=== PATIENT | male | born 1975 | race Caucasian/White ===

== ENCOUNTER 2019-03-10 07:47 | Emergency (ER) | payer OTHER, SELFPAY ==
[2019-03-10 07:51] VITALS: BP 161/85; PULSE 88; RESP 16; TEMP 36.7; O2SAT 97
--- NOTE | 2019-03-10 08:21 | W.ED.GENAD ---
Discharge Plan Disposition Patient Disposition: HOME Condition: Stable Discharge Details Chief Complaint: Cellulitis Clinical Impression: Abscess, perianal Primary Care Provider: Cayden Waggoner ED Provider: Yimi Miller Home Meds and New Rx's Prescriptions: Continued aspirin 81 MG tablet,delayed release (DR/EC) 81 mg PO DAILY RF: 0 levalbuterol tartrate [Xopenex HFA] 200 PUFF HFA aerosol inhaler 15 gm Inhalation Q4H PRN PRNQty: 1 RF: 0 atorvastatin 40 mg tablet 40 mg PO DAILY Qty: 90 RF: 3 ibuprofen 800 mg tablet 800 mg PO TID Qty: 90 RF: 3 cyclobenzaprine 10 mg tablet 10 mg PO HS PRN (Reason: muscle spasm) Qty: 30 RF: 4 No Action amlodipine 5 mg tablet 5 mg PO QAM Qty: 90 RF: 4 Discharge Instructions Instructions: Abscess (ED) Additional Instructions: Return immediately to the emergency department for any new or worsening symptoms, fever chills, or any further concerns. Otherwise gently wipe after bowel movements to keep packing in place and follow-up with surgical group on Tuesday for reassessment and packing removal. Please take antibiotic as prescribed. Referrals: [facility] [Provider Group] - 03/12/19 (Please call the office for arrangement of follow-up appointment and packing removal) Discharge Data Discharge Date/Time-TO BE ENTERED AT DEPARTURE: 03/10/19 11:39 Medical Decision Making Patient presenting to the emergency department for chief complaint of rectal abscess. Patient reports that about a week ago he noted some discomfort near his rectum. Over the past week this is grown in size and increasing discomfort were today it began bothering him so much that it hurts to sit down. Patient has medical history of back pain, hypertension, high cholesterol. Patient denies any fever chills, change in bowel movement, change in urinary habits. Physical exam shows very minimal superficial erythema at the 6 o'clock position from the rectum and mild induration. With bedside ultrasound there shows to be a significant abscess in this area with fluid collection. Given significant fluid collection I do feel that CT imaging is warranted. Pending results of labs and imaging patient given ketorolac for discomfort. Labs are reviewed and are unremarkable and show no leukocytosis and are otherwise nondiagnostic. CT imaging reviewed and radiologist interpretation shows a perianal abscess with radiologist measuring at 2.4 cm x 1.4 cm x 1.7 cm. Discussed risk versus benefit of drainage with patient and verbal consent was obtained for I&D drainage. Please see procedure note for drainage. Iodoform packing was used. Patient tolerated procedure well. Patient started on Cipro Flagyl given location but due to I&D patient just given 3-day supply of antibiotics as otherwise labs are unremarkable patient is stable nontoxic no systemic symptoms. Return precautions discussed otherwise patient placed upon general surgery follow-up list for preferred reassessment on Tuesday and possible packing removal. After discussion of diagnosis and plan of care patient has no further needs, questions, or concerns and states clear understanding to return to the emergency department for any worsening symptoms. HPI General Mode of arrival: ambulatory. Date/Time Provider Initiated Documentation: 03/10/19 08:00. Limitations to Documentation: no limitations. Information obtained by: patient, family and RN notes reviewed. History of Present Illness 43 year old M presents to the emergency department with the chief complaint of rectal swelling/abscess, described as moderate, with intensity rated at 4. Quality is described as aching, and is localized to the pelvis. Patient started experiencing this week(s) (1) and it has been constant. No exacerbating factors reported . Patient notes no other symptoms.. Patient did receive the following treatments prior to arrival, none Related Data Home Medications Medication Instructions Recorded Confirmed aspirin 81 mg PO DAILY tab-cap 08/24/13 03/10/19 levalbuterol tartrate [Xopenex HFA] 15 gm INHALATION Q4H PRN PRN #1 inh 12/09/17 03/10/19 atorvastatin 40 mg tablet 40 mg PO DAILY #90 tab-cap 12/12/18 03/10/19 ibuprofen 800 mg tablet 800 mg PO TID #90 tab-cap 12/12/18 03/10/19 cyclobenzaprine 10 mg tablet 10 mg PO HS PRN #30 tab-cap 12/29/18 03/10/19 amlodipine 5 mg tablet 5 mg PO QAM #90 tab 03/12/19 Previous Rx's Medication Instructions Recorded atorvastatin 40 mg tablet 40 mg PO DAILY #90 tab-cap 12/12/18 ibuprofen 800 mg tablet 800 mg PO TID #90 tab-cap 12/12/18 cyclobenzaprine 10 mg tablet 10 mg PO HS PRN #30 tab-cap 12/29/18 amlodipine 5 mg tablet 5 mg PO QAM #90 tab 03/12/19 Allergies Allergy/AdvReac Type Severity Reaction Status Date / Time green pepper Allergy Intermediate tingling Verified 03/12/19 09:56 lips apple Allergy Unknown Verified 03/12/19 09:56 General Stated Complaint: Cellulitis LIZETH: 3 Review of Systems Constitutional Denies chills and Denies fever(s) Gastrointestinal Reports as per HPI, Denies abdominal pain, Denies melena, Denies change in bowel habits, Denies constipation, Denies diarrhea, Denies nausea and Denies vomiting Genitourinary Denies difficulty urinating Integumentary/Breasts Reports skin swelling PFSH Family History Mother Fibromyalgia Father Diabetes Essential hypertension Hyperlipidemia Stroke Grandfather Stroke Grandfather Myocardial infarction Stroke Grandmother Personal history of malignant neoplasm Grandmother No problems noted. Sister Aneurysm Social History Smoking/Tobacco Use Status: Former Tobacco Use Alcohol Intake: current Alcohol Intake frequency: holidays/special occasions only Alcohol type: beer Drug use: Daily Substance use type: marijuana Do you feel safe at home: Yes Do you feel safe in your relationship?: Yes Exam Const General: cooperative, no acute distress and not ill appearing Orientation: alert, awake and oriented x3 Resp Effort & Inspection: normal respiratory effort, able to speak in complete sentences and no respiratory distress GI Rectal Exam: visual inspection abnormal other (Fluctuance is swelling at 6 o'clock) Course Vital Signs Temperature 36.7 C 03/10/19 07:51 Pulse 88 03/10/19 07:51 Respiratory Rate 16 03/10/19 07:51 Blood Pressure 161/85 H 03/10/19 07:51 Pulse Oximetry 97 03/10/19 07:51 Temperature 36.7 C 03/10/19 07:51 Temperature Source Skin 03/10/19 07:51 Pulse 88 03/10/19 07:51 Respiratory Rate 16 03/10/19 07:51 Blood Pressure 161/85 H 03/10/19 07:51 Blood Pressure Position Sitting 03/10/19 07:51 Pulse Oximetry 97 03/10/19 07:51 Oxygen Delivery Method Room Air 03/10/19 07:51 Oxygen Flow Rate 0 03/10/19 07:51 Pain Level 4 03/10/19 07:51 Procedures Abscess I/D Site: Denisse-rectal Sedation/analgesia: None Local Anesthetic: Lidocaine 1% Amount of anesthesia used (mL): 10 Technique: Incised with #11 Blade Amount of fluid expressed (mL): 5 Irrigation: Yes Packing used?: Iodoform Complications: Bleeding
--- NOTE | 2019-03-10 08:26 | ED.GENADUL_ITS ---
Discharge Plan Disposition Patient Disposition: HOME Condition: Stable Discharge Details Chief Complaint: Cellulitis Clinical Impression: Abscess, perianal Primary Care Provider: Cayden Waggoner ED Provider: Yimi Miller Home Meds and New Rx's Prescriptions: Continued aspirin 81 MG tablet,delayed release (DR/EC) 81 mg PO DAILY RF: 0 levalbuterol tartrate [Xopenex HFA] 200 PUFF HFA aerosol inhaler 15 gm Inhalation Q4H PRN PRNQty: 1 RF: 0 atorvastatin 40 mg tablet 40 mg PO DAILY Qty: 90 RF: 3 ibuprofen 800 mg tablet 800 mg PO TID Qty: 90 RF: 3 cyclobenzaprine 10 mg tablet 10 mg PO HS PRN (Reason: muscle spasm) Qty: 30 RF: 4 No Action amlodipine 5 mg tablet 5 mg PO QAM Qty: 90 RF: 4 Discharge Instructions Instructions: Abscess (ED) Additional Instructions: Return immediately to the emergency department for any new or worsening symptoms, fever chills, or any further concerns. Otherwise gently wipe after bowel movements to keep packing in place and follow-up with surgical group on Tuesday for reassessment and packing removal. Please take antibiotic as prescribed. Referrals: [facility] [Provider Group] - 03/12/19 (Please call the office for arrangement of follow-up appointment and packing removal) Discharge Data Discharge Date/Time-TO BE ENTERED AT DEPARTURE: 03/10/19 11:39 Medical Decision Making Patient presenting to the emergency department for chief complaint of rectal abscess. Patient reports that about a week ago he noted some discomfort near his rectum. Over the past week this is grown in size and increasing discomfort were today it began bothering him so much that it hurts to sit down. Patient has medical history of back pain, hypertension, high cholesterol. Patient denies any fever chills, change in bowel movement, change in urinary habits. Physical exam shows very minimal superficial erythema at the 6 o'clock position from the rectum and mild induration. With bedside ultrasound there shows to be a significant abscess in this area with fluid collection. Given significant fluid collection I do feel that CT imaging is warranted. Pending results of labs and imaging patient given ketorolac for discomfort. Labs are reviewed and are unremarkable and show no leukocytosis and are otherwise nondiagnostic. CT imaging reviewed and radiologist interpretation shows a perianal abscess with radiologist measuring at 2.4 cm x 1.4 cm x 1.7 cm. Discussed risk versus benefit of drainage with patient and verbal consent was obtained for I&D drainage. Please see procedure note for drainage. Iodoform packing was used. Patient tolerated procedure well. Patient started on Cipro Flagyl given location but due to I&D patient just given 3-day supply of antibiotics as otherwise labs are unremarkable patient is stable nontoxic no systemic symptoms. Return precautions discussed otherwise patient placed upon general surgery follow-up list for preferred reassessment on Tuesday and possible packing removal. After discussion of diagnosis and plan of care patient has no further needs, questions, or concerns and states clear understanding to return to the emergency department for any worsening symptoms. [facility] General Mode of arrival: ambulatory . Date/Time Provider Initiated Documentation: 03/10/19 08:00 . Limitations to Documentation: no limitations . Information obtained by: patient, family and RN notes reviewed . History of Present Illness 43 year old M presents to the emergency department with the [facility] complaint of rectal swelling/abscess, described as moderate, with intensity rated at 4. Quality is described as aching, and is localized to the pelvis. Patient started experiencing this week(s) (1) and it has been constant. No exacerbating factors reported . Patient notes no other symptoms.. Patient did receive the following treatments prior to arrival, none Related Data Home Medications Medication Instructions Recorded Confirmed aspirin 81 mg PO DAILY tab-cap 08/24/13 03/10/19 levalbuterol tartrate [Xopenex HFA] 15 gm INHALATION Q4H PRN PRN #1 inh 12/09/17 03/10/19 atorvastatin 40 mg tablet 40 mg PO DAILY #90 tab-cap 12/12/18 03/10/19 ibuprofen 800 mg tablet 800 mg PO TID #90 tab-cap 12/12/18 03/10/19 cyclobenzaprine 10 mg tablet 10 mg PO HS PRN #30 tab-cap 12/29/18 03/10/19 amlodipine 5 mg tablet 5 mg PO QAM #90 tab 03/12/19 Previous Rx's Medication Instructions Recorded atorvastatin 40 mg tablet 40 mg PO DAILY #90 tab-cap 12/12/18 ibuprofen 800 mg tablet 800 mg PO TID #90 tab-cap 12/12/18 cyclobenzaprine 10 mg tablet 10 mg PO HS PRN #30 tab-cap 12/29/18 amlodipine 5 mg tablet 5 mg PO QAM #90 tab 03/12/19 Allergies Allergy/AdvReac Type Severity Reaction Status Date / Time green pepper Allergy Intermediate tingling Verified 03/12/19 09:56 lips apple Allergy Unknown Verified 03/12/19 09:56 General Stated Complaint: Cellulitis LIZETH: 3 Review of Systems Constitutional Denies chills and Denies fever(s) Gastrointestinal Reports as per HPI, Denies abdominal pain, Denies melena, Denies change in bowel habits, Denies constipation, Denies diarrhea, Denies nausea and Denies vomiting Genitourinary Denies difficulty urinating Integumentary/Breasts Reports skin swelling PFSH Family History Mother Fibromyalgia Father Diabetes Essential hypertension Hyperlipidemia Stroke Grandfather Stroke Grandfather Myocardial infarction Stroke Grandmother Personal history of malignant neoplasm Grandmother No problems noted. Sister Aneurysm Social History Smoking/Tobacco Use Status: Former Tobacco Use Alcohol Intake: current Alcohol Intake frequency: holidays/special occasions only Alcohol type: beer Drug use: Daily Substance use type: marijuana Do you feel safe at home: Yes Do you feel safe in your relationship?: Yes Exam Const General: cooperative, no acute distress and not ill appearing Orientation: alert, awake and oriented x3 Resp Effort & Inspection: normal respiratory effort, able to speak in complete sentences and no respiratory distress GI Rectal Exam: visual inspection abnormal other (Fluctuance is swelling at 6 o'clock) Course Vital Signs Temperature 36.7 C 03/10/19 07:51 Pulse 88 03/10/19 07:51 Respiratory Rate 16 03/10/19 07:51 Blood Pressure 161/85 H 03/10/19 07:51 Pulse Oximetry 97 03/10/19 07:51 Temperature 36.7 C 03/10/19 07:51 Temperature Source Skin 03/10/19 07:51 Pulse 88 03/10/19 07:51 Respiratory Rate 16 03/10/19 07:51 Blood Pressure 161/85 H 03/10/19 07:51 Blood Pressure Position Sitting 03/10/19 07:51 Pulse Oximetry 97 03/10/19 07:51 Oxygen Delivery Method Room Air 03/10/19 07:51 Oxygen Flow Rate 0 03/10/19 07:51 Pain Level 4 03/10/19 07:51 Procedures Abscess I/D Site: Denisse-rectal Sedation/analgesia: None Local Anesthetic: Lidocaine 1% Amount of anesthesia used (mL): 10 Technique: Incised with #11 Blade Amount of fluid expressed (mL): 5 Irrigation: Yes Packing used?: Iodoform Complications: Bleeding
[2019-03-10 08:38] LABS: Abs Immature Grans 0.01 k/cumm (0.0-0.09); Absolute Basophil Count 0.01 k/cumm (0.0-0.2); Absolute Eosinophil Count 0.11 k/cumm (0.0-0.7); Absolute Lymphocyte Count 2.15 k/cumm (1.2-3.4); Absolute Monocyte Count 0.71 k/cumm (0.11-0.7); Absolute Neutrophil Count 4.98 k/cumm (1.2-6.7); Basophils % 0.1; Eosinophils % 1.4; HGB 13.7 g/dL (13.5-17.5); Immature Grans % 0.1; Mean Corp. HGB Concentration 33.4 g/dL (32.0-36.0); Mean Corpuscular Volume 89.7 fL (80-95); Mean Platelet Volume 10.4 fL (8.0-11.0); Monocytes % 8.9; Neutrophils % 62.5; Platelet Count 260 x1000/uL (130-400); RBC 4.57 m/cumm (4.50-6.00); RBC Distribution Width 13.3 % (11.8-14.1); White Blood Cell Count 7.97 k/cumm (4.4-10.8)
[2019-03-10] MEDS: Normal Saline Flush 10 ML SYR IVP (08:41)
[2019-03-10] MEDS: Ketorolac 30 MG/ML VIAL IVP (08:41)
[2019-03-10 08:51] LABS: ALT 41 U/L (12-78); AST 25 U/L (15-37); Albumin 3.9 g/dL (3.4-5.0); Alkaline Phosphatase 56 U/L (46-116); Anion Gap 9.8 mmol/L (3-11); BUN 11 mg/dL (7-18); Bilirubin, Total 0.4 mg/dL (0.2-1.0); CO2 26.2 mmol/L (21.0-32.0); CREATININE 0.79 mg/dL (0.70-1.30); Calcium 8.9 mg/dL (8.5-10.1); Chloride 103 mmol/L (98-107); Glucose 112 mg/dL (70-100); Potassium 3.9 mmol/L (3.5-5.1); Sodium 139 mmol/L (136-145); Total Protein 7.6 g/dL (6.4-8.2)
[2019-03-10] MEDS: Omnipaque 350 MG/ML 100 ML BTL IJ (09:11)
--- NOTE | 2019-03-10 09:12 | DI.CT_ITS ---
SYMPTOM/DIAGNOSIS: RECTAL ABSCESS PELVIC CT: CT scan of the pelvis was performed following the uneventful administration of intravenous contrast material. Comparison is made with 10/23/07. There is diverticulosis seen in the sigmoid colon but no evidence of acute diverticulitis. There is a normal appendix present. The remainder of the visualized bowel is unremarkable. The urinary bladder is intact. The reproductive organs are unremarkable. No significant pelvic adenopathy, ascites or pneumoperitoneum is seen. The distal aorta and iliac arteries are grossly unremarkable. The bones are intact. There is a 2.4 by 1.4 by 1.7 cm. perianal abscess present. IMPRESSION: 2.4 by 1.4 by 1.7 cm. perianal abscess.
--- NOTE | 2019-03-10 09:36 | DI.VRAD_ITS ---
EXAM: CT Pelvis With Contrast EXAM DATE/TIME: 03/10/2019 8:21 AM CLINICAL HISTORY: 43 years old, male; Signs and symptoms; Patient HX: Rectal abscess x1 week. TECHNIQUE: Imaging protocol: Axial computed tomography images of the pelvis with intravenous contrast. Coronal and sagittal reformatted images were created and reviewed. Contrast material: OMNIPAQUE 350; Contrast volume: 100 ml; Contrast route: IV; COMPARISON: No relevant prior studies available. FINDINGS: Stomach and bowel: No bowel obstruction or diverticulitis. Appendix: The appendix has a normal caliber with no wall thickening. No periappendiceal stranding. Bladder: No urinary bladder calculus or wall thickening. Reproductive: Normal as visualized. Intraperitoneal space: No ascites or pneumoperitoneum. Vasculature: No aneurysm. Lymph nodes: No pathologically enlarged lymph nodes. Bones/joints: No acute osseous abnormality. Soft tissues: There is a 2.4 cm x 1.4 cm x 1.7 cm perianal abscess. IMPRESSION: Perianal abscess. Dictated and Authenticated by: Edilson Hunter MD. Ordering:ALYSHA Geller MD
[2019-03-10 09:46] VITALS: BP 145/64; PULSE 72; RESP 18; TEMP 37.2; O2SAT 97
[2019-03-10] MEDS: Lidocaine/Prilocaine Cream 5 GM TUBE TP (09:50)
[2019-03-10] MEDS: metroNIDAZOLE 500 MG TAB PO (11:33)
[2019-03-10] MEDS: Ciprofloxacin 500 MG TAB PO (11:33)
--- NOTE | 2019-03-11 07:27 | NUR.NOTE ---
referral sent to general surgery for ED f/u.Nursing Note:
== END 2019-03-10 11:39 | disposition home or self-care (01) ==
PROVIDERS: Emergency Provider Nurse Practitioner Family; PCP Family Medicine
DX: K61.0 Anal abscess (principal)
CPT/HCPCS: 10061; 36415; 80053; 87077; 96374; 99285; 72193; 85025; 87070; 87186; 87205; 99284; J1885; J3490

== ENCOUNTER 2019-07-23 09:35 | Outpatient (CLI) | payer OTHER, SELFPAY ==
--- NOTE | 2019-07-23 10:00 | DI.RAD_ITS ---
EXAM: XR KNEE LT 3V AP,LAT,RICKY INDICATION: left knee pain M25.562. COMPARISON: LEFT KNEE LIMITED 1 OR 2 VIEWS from 06/14/2012 TECHNIQUE: 2D digital imaging was performed. FINDINGS: The bony structures are normally mineralized. The joint spaces appear intact. Spur formation is not ed at the insertion of the quadriceps tendon on the superior border of the patella. There is no evide nce of a joint effusion.
== END 2019-07-23 09:55 ==
PROVIDERS: PCP Family Medicine; Visit Provider Family Medicine
DX: M25.562 Pain in left knee (principal)
CPT/HCPCS: 73562

== ENCOUNTER 2019-07-27 08:41 | Outpatient (CLI) | payer OTHER, SELFPAY ==
--- NOTE | 2019-07-27 08:26 | DI.RAD_ITS ---
EXAM: XR KNEE LT 1V CLINICAL HISTORY: PAIN TECHNIQUE: COMPARISON: XR KNEE LT 3V AP,LAT,RICKY from 07/23/2019 FINDINGS: Single Merchant view was obtained. The patella is unremarkable in appearance and appears normally si tuated with respect to the trochlea. IMPRESSION:
== END 2019-07-27 09:01 ==
PROVIDERS: PCP Family Medicine; Visit Provider Student in an Organized Health Care Education/Training Program
DX: M25.562 Pain in left knee (principal)
CPT/HCPCS: 73560

== ENCOUNTER 2020-03-26 02:37 | Outpatient (CLI) | payer OTHER, SELFPAY ==
[2020-03-26 13:26] LABS: Anion Gap 10.7 mmol/L (3-11); BUN 16 mg/dL (7-18); CO2 26.3 mmol/L (21.0-32.0); CREATININE 0.82 mg/dL (0.70-1.30); Calcium 9.5 mg/dL (8.5-10.1); Calculated LDL 85 mg/dL (<100); Chloride 104 mmol/L (98-107); Cholesterol 135 mg/dL (<200); Glucose 114 mg/dL (74-106); HDL Cholesterol 37 mg/dL (40-60); Potassium 4.6 mmol/L (3.5-5.1); Sodium 141 mmol/L (136-145); Triglyceride 68 mg/dL (<150)
== END 2020-03-26 02:57 ==
PROVIDERS: PCP Family Medicine; Visit Provider Family Medicine
DX: Z00.00 Encounter for general adult medical examination without abnormal findings (principal); I10 Essential (primary) hypertension
CPT/HCPCS: 36415; 80048; 80061

== ENCOUNTER 2020-07-29 08:20 | Outpatient (CLI) | payer OTHER, SELFPAY ==
--- NOTE | 2020-07-29 08:30 | DI.RAD_ITS ---
EXAM: XR HAND LT COMPLETE CLINICAL HISTORY: left hand injury TECHNIQUE: COMPARISON: CR LEFT HAND COMPLETE from 07/23/2010 FINDINGS: Three views were obtained. There are degenerative changes at the greater multangular 1st metacarpal joint. There is no evidence of acute fracture or dislocation. IMPRESSION: RADIATION DOSE DELIVERED: Total DLP
== END 2020-07-29 08:40 ==
PROVIDERS: PCP Nurse Practitioner; Referring Provider Nurse Practitioner; Visit Provider Physician Assistant Surgical
DX: M18.12 Unilateral primary osteoarthritis of first carpometacarpal joint, left hand (principal)
CPT/HCPCS: 73130

== ENCOUNTER 2021-04-30 04:10 | Outpatient (CLI) | payer OTHER, SELFPAY ==
[2021-04-30 09:05] LABS: CREATININE 0.8 mg/dL (0.70-1.30); Potassium 4.2 mmol/L (3.5-5.1)
[2021-04-30 09:18] LABS: Calculated LDL 94 mg/dL (<100); Cholesterol 149 mg/dL (<200); HDL Cholesterol 44 mg/dL (40-60); Triglyceride 57 mg/dL (<150)
[2021-04-30 18:20] LABS: PSA, Screening 0.3 ng/mL (0.0-2.5)
== END 2021-04-30 04:11 | disposition home or self-care (01) ==
LOC: LBO 04:10
PROVIDERS: PCP Nurse Practitioner; Visit Provider Nurse Practitioner
DX: E78.5 Hyperlipidemia, unspecified (principal); I10 Essential (primary) hypertension; R73.01 Impaired fasting glucose; Z12.5 Encounter for screening for malignant neoplasm of prostate
CPT/HCPCS: 36415; 80061; 84153; 82565; 83036; 84132

== ENCOUNTER 2021-05-26 08:08 | Emergency (ER) | payer OTHER, SELFPAY ==
[2021-05-26 08:12] VITALS: BP 140/88; PULSE 67; RESP 16; TEMP 36.4; O2SAT 98
--- NOTE | 2021-05-26 08:15 | DI.US_ITS ---
Exam(s) US LOWER EXTREMITY VENOUS LT EXAM: US LOWER EXTREMITY VENOUS LT CLINICAL HISTORY: L medial thigh swelling. TECHNIQUE: Lower extremity venous ultrasound performed using grayscale, color-flow, and spectral Do ppler analysis. COMPARISON: No exams were available for comparison FINDINGS: The common femoral, femoral and popliteal veins demonstrate normal compressibility, augmentation, and color Doppler. The posterior tibial veins are patent. No saphenous vein thrombosis or other superfi cial venous thrombosis is seen. No hematoma or Alba's cyst is seen. IMPRESSION: Negative left lower extremity ultrasound. No evidence of DVT. DATA REPOSITORY:
[2021-05-26 08:16] VITALS: RESP 16
--- NOTE | 2021-05-26 08:28 | W.ED.GENAD ---
Discharge Plan Disposition Patient Disposition: HOME Condition: Improving Discharge Details Clinical Impression: Muscle cramps Primary Care Provider: Joanne Berman ED Provider: Zachary Gutiérrez Home Meds and New Rx's Prescriptions: Continued aspirin 81 MG tablet,delayed release (DR/EC) 81 mg PO DAILY RF: 0 levalbuterol tartrate [Xopenex HFA] 45 mcg/actuation HFA aerosol inhaler 2 puff Inhalation Q4H PRN PRN (Reason: shortness of breath or wheezing) Qty: 15 RF: 4 atorvastatin 40 mg tablet 40 mg PO DAILY Qty: 90 RF: 3 cyclobenzaprine 10 mg tablet 10 mg PO HS PRN (Reason: muscle spasm) Qty: 30 RF: 4 ibuprofen 800 mg tablet 800 mg PO TID PRN (Reason: fever or pain) Qty: 90 RF: 3 amlodipine 5 mg tablet 5 mg PO QHS RF: 0 Discharge Instructions Instructions: Leg Cramps (ED) Additional Instructions: Limit caffeine use to 2 cups in the morning. Continue to liberally hydrate throughout the day while working. Add potassium-containing fruit such as bananas or strawberries to your daily diet. Your laboratories today were reassuring. Return for any acute concerns. Medical Decision Making 46-year-old male presents with history of heavy exertion, sweating dehydration followed by left medial thigh cramp which he managed to ease with vigorous massage. He had some diarrhea and generalized weakness that evening and subsequently felt improved. Patient states she then noted a patch of erythema on his left medial thigh in the area of the cramp that lasted approximate 2 days, now improving. No fever. No chest pain or shortness of breath and he has otherwise been well. Must rule out DVT, would consider superficial thrombophlebitis, but likely patient had localized irritation following his dehydration and muscle cramp. Laboratories: CBC and basic unremarkable Ultrasound: No evidence of DVT. Patient stable and appropriate outpatient management. His presentation is consistent with a muscular cramp. Discussed home management. HPI General Mode of arrival: ambulatory. Date/Time Provider Initiated Documentation: 05/26/21 08:16. Limitations to Documentation: no limitations. Information obtained by: patient and family. History of Present Illness 46 year old M presents to the emergency department with the chief complaint of Left medial thigh erythema, recent cramp, described as mild and moderate, and is localized to the left and lower extremity. Patient reports no radiation. Patient started experiencing this day(s) and it has been other (Improving). No relieving factors improve symptom(s), No exacerbating factors reported . Patient notes other (Had loose stool and muscle cramps with dehydration antecedent). Patient did receive the following treatments prior to arrival, none Related Data Home Medications Medication Instructions Recorded Confirmed aspirin 81 mg PO DAILY tab-cap 08/24/13 05/26/21 levalbuterol tartrate 45 2 puff INHALATION Q4H PRN PRN #15 10/01/20 05/26/21 mcg/actuation aerosol inhaler gm atorvastatin 40 mg tablet 40 mg PO DAILY #90 tab-cap 01/08/21 05/26/21 cyclobenzaprine 10 mg tablet 10 mg PO HS PRN #30 tab-cap 02/26/21 05/26/21 ibuprofen 800 mg tablet 800 mg PO TID PRN #90 tab-cap 05/01/21 05/26/21 amlodipine 5 mg PO QHS 05/26/21 05/26/21 Previous Rx's Medication Instructions Recorded levalbuterol tartrate 45 2 puff INHALATION Q4H PRN PRN #15 10/01/20 mcg/actuation aerosol inhaler gm atorvastatin 40 mg tablet 40 mg PO DAILY #90 tab-cap 01/08/21 cyclobenzaprine 10 mg tablet 10 mg PO HS PRN #30 tab-cap 02/26/21 ibuprofen 800 mg tablet 800 mg PO TID PRN #90 tab-cap 05/01/21 Allergies Allergy/AdvReac Type Severity Reaction Status Date / Time green pepper Allergy Intermediate tingling Verified 04/02/21 08:05 lips apple Allergy Unknown Verified 04/02/21 08:05 General Stated Complaint: GenMedical LIZETH: 4 Review of Systems Narrative: 6 systems reviewed and otherwise negative FOR[facility]LY [facility], [facility] Medical History Anisocoria Anxiety Depression MCL sprain of left knee (07/17/19) Perianal abscess Shoulder pain Surgical History Previous back surgery ? In [place] Family History Mother Fibromyalgia Father Diabetes Essential hypertension Hyperlipidemia Stroke Maternal Grandfather , 83 Stroke Alcohol abuse Paternal Grandfather , 74 Myocardial infarction Stroke Maternal Grandmother , 49 Lung cancer Paternal Grandmother No problems noted. Sister Aneurysm Traumatic brain injury Social History Smoking/Tobacco Use Status: Former Tobacco Use Tobacco: How many years used: 10 Second Hand Exposure: Yes Smoking risk assessment performed?: Yes Alcohol Intake: current Alcohol Intake frequency: 0-2 drinks per day Alcohol type: beer and wine Drug use: Daily Substance use type: marijuana Caregiver/Support person: No Household members: spouse and children Housing: house Communication Needs: None Do you need help understanding health information?: Never Pets and animals: Yes Pets and animals: cat(s) and dog(s) Sexually active: Yes Do you think of yourself as: straight/heterosexual Current gender identity: male What is your relationship status?: How often do you talk on the phone with friends or family?: decline to answer How often do you get together with friends or relatives?: decline to answer How often do you attend confucianism or quaker services?: decline to answer Do you belong to any clubs or organized social groups?: decline to answer Panel score (0-1 are the most socially isolated patients): 1 What type of physical activity do you participate in: decline to answer Duration: decline to answer Frequency: decline to answer Maria Victoria/Restorationist: No preference Special maria victoria needs: No Seatbelt use: always Drive intox or ride w/intox taxi driver: No Do you feel safe at home: Yes Do you feel safe in your relationship?: Yes Exam Narrative Exam Narrative: GEN: awake, alert, oriented 3. Pleasant, well groomed, interactive. HEAD: Normocephalic, atraumatic ENT: Mucous membranes moist, oropharynx unremarkable, External ear exam unremarkable EYES: PERRL, EOMI NECK: Full ROM, no MANISH, no menigismus CHEST/RESP: Nontender, clear to auscultation bilateral, no wheeze/rhonchi/rales CARDIOVASCULAR: RRR, no murmur, rub jaime. 2+ Rad pulse bilateral ABDOMEN: Soft, nontender, no mass. +Bowel sounds EXT: Full ROM, no edema, left medial thigh with discrete area of ecchymosis, no persistent erythema as reported Neuro: Grossly normal neurologic exam, conversant, interactive. Psych: Speech fluent, thoughts congruent, affect normal Course Vital Signs Vital signs: Vital Signs Temperature 36.4 C L 05/26/21 08:12 Pulse 67 05/26/21 08:12 Respiratory Rate 16 05/26/21 08:12 Blood Pressure 140/88 05/26/21 08:12 Pulse Oximetry 98 05/26/21 08:12 Temperature 36.4 C L 05/26/21 08:12 Temperature Source Skin 05/26/21 08:12 Pulse 67 05/26/21 08:12 Respiratory Rate 16 05/26/21 08:16 Respiratory Effort 05/26/21 08:16 Respiratory Depth Normal 05/26/21 08:16 Respiratory Pattern Normal 05/26/21 08:16 Blood Pressure 140/88 05/26/21 08:12 Pulse Oximetry 98 05/26/21 08:12 Oxygen Delivery Method Room Air 05/26/21 08:12 Oxygen Flow Rate 0 05/26/21 08:12 Pain Level 2 05/26/21 08:12
[2021-05-26 08:40] LABS: HCT 43.4 % (40.0-50.0); HGB 13.9 g/dL (13.5-17.5); MCH 29.1 pg (27.0-33.0); MCV 90.8 fL (80-95); MPV 9.8 fL (8.0-11.0); Platelet Count 236 10^3/uL (130-400); RBC 4.78 10^6/uL (4.36-5.78); RDW 13.1 % (11.8-14.1); RDW-SD 44.1 fL; WBC 4.66 10^3/uL (4.4-10.8)
[2021-05-26 08:52] LABS: Anion Gap 8.3 mmol/L (3-11); BUN 12 mg/dL (7-18); CO2 29.7 mmol/L (21.0-32.0); CREATININE 0.8 mg/dL (0.70-1.30); Calcium 9.1 mg/dL (8.5-10.1); Chloride 105 mmol/L (98-107); Glucose 126 mg/dL (74-106); Potassium 3.9 mmol/L (3.5-5.1); Sodium 143 mmol/L (136-145)
[2021-05-26 09:56] VITALS: RESP 16
== END 2021-05-26 10:02 | disposition home or self-care (01) ==
PROVIDERS: Emergency Provider Emergency Medicine; PCP Nurse Practitioner Family
DX: R25.2 Cramp and spasm (principal); E86.0 Dehydration
CPT/HCPCS: 36415; 80048; 85027; 99284; 93971

== ENCOUNTER 2022-04-09 02:31 | Outpatient (CLI) | payer OTHER, SELFPAY ==
[2022-04-09 07:34] LABS: HGB 14.1 g/dL (13.5-17.5); MCH 29.8 pg (27.0-33.0); MCHC 32.8 % (32.0-36.0); MCV 91 fL (80-95); Platelet Count 257 10^3/uL (130-400); RBC 4.73 10^6/uL (4.36-5.78); RDW 13.3 % (11.8-14.1); WBC 7.21 10^3/uL (4.4-10.8)
[2022-04-09 07:59] LABS: Hemoglobin A1C 5.9 % (<5.7)
[2022-04-09 09:00] LABS: ALT 33 U/L (16-63); AST 18 U/L (15-37); Albumin 3.9 g/dL (3.4-5.0); Alkaline Phosphatase 59 U/L (46-116); Anion Gap 6.1 mmol/L (3-11); BUN 19 mg/dL (7-18); Bilirubin, Total 0.4 mg/dL (0.2-1.0); CO2 29.9 mmol/L (21.0-32.0); CREATININE 0.8 mg/dL (0.70-1.30); Calcium 8.5 mg/dL (8.5-10.1); Calculated LDL 96 mg/dL (<100); Chloride 104 mmol/L (98-107); Cholesterol 160 mg/dL (<200); Glucose 115 mg/dL (74-106); HDL Cholesterol 51 mg/dL (40-60); Potassium 4.2 mmol/L (3.5-5.1); Sodium 140 mmol/L (136-145); Total Protein 6.9 g/dL (6.4-8.2); Triglyceride 66 mg/dL (<150)
== END 2022-04-09 02:32 | disposition home or self-care (01) ==
LOC: LBO 02:31
PROVIDERS: PCP Nurse Practitioner; Visit Provider Nurse Practitioner
DX: E78.5 Hyperlipidemia, unspecified (principal); I10 Essential (primary) hypertension; R61 Generalized hyperhidrosis; Z13.1 Encounter for screening for diabetes mellitus
CPT/HCPCS: 36415; 80053; 80061; 85027; 83036

== ENCOUNTER 2024-05-01 07:59 | Emergency (ER) | payer BC, SELFPAY ==
--- NOTE | 2024-05-01 08:00 | DI.CT_ITS ---
Exam(s) CT ABDOMEN PELVIS W EXAM: CT ABDOMEN PELVIS W CLINICAL HISTORY: left lower abdominal pain. TECHNIQUE: Imaging Protocol: Axial computed tomography images with coronal and sagittal reformatted images were created and reviewed CONTRAST MATERIAL: Intravenous: Omnipaque 350 Contrast volume:100 ml Oral: no COMPARISON: CT CT pelvic w from 03/10/2019 FINDINGS: ABDOMEN and PELVIS: Lung Bases: No acute findings. Liver: Normal density. No suspicious mass. Gallbladder and biliary tract: No radiodense calculus. No biliary dilation. Pancreas: Normal density. No abnormal calcifications or inflammatory process. No evidence of mass. Spleen: Normal. Kidneys: Normal size, contour and axis. No radiodense stones. No obstructive uropathy. No suspicious masses seen. Adrenal glands: No masses seen. Vasculature: Abdominal aorta non-dilated. Soft tissues: Unremarkable. Bladder: No gross wall thickening. No calculi.No focal mass. Bowel: No obstruction. Diverticulosis noted descending and sigmoid colon. There is inflammation jennifer rounding the mid to lower descending colon, consistent with diverticulitis. No evidence of abscess or perforation. Appendix normal. Peritoneal cavity: No ascites. No focal collection. Bones: Unremarkable for age. Reproductive organs: Unremarkable. Lymph nodes: No pathologically enlarged lymph nodes. IMPRESSION:: Diverticulitis of the mid to lower descending colon. No abscess or perforation. Findings called to Dr. Palafox of the emergency department. RADIATION DOSE DELIVERED: Total DLP DATA REPOSITORY: All CT scans at this facility are submitted to the National Radiology Data Registry (NRDR) Dose Index Registry (DIR) with the [employer] (ACR). RADIATION OPTIMIZATION: All CT scans at this facility use at least one of these dose optimization te chniques: automated exposure control; mA and/or kV adjustment per patient size (includes targeted exa ms where dose is matched to clinical indication); or iterative reconstruction.
[2024-05-01 08:02] VITALS: BP 164/85; PULSE 86; RESP 15; O2SAT 99
[2024-05-01 08:04] VITALS: BP 164/85; PULSE 86; RESP 15; O2SAT 99
--- NOTE | 2024-05-01 08:13 | W.ED.GENAD ---
Discharge Plan Disposition Patient Disposition: Home Condition: Stable Discharge Details Clinical Impression: Abdominal pain, Diverticulitis Primary Care Provider: Mary Anne Cobos ED Provider: Danish Palafox Home Meds and New Rx's Prescriptions: New amoxicillin-pot clavulanate 875-125 mg tablet 1 tab PO BID Qty: 14 0RF Continued aspirin 81 MG tablet,delayed release (DR/EC) 81 mg PO DAILY cyclobenzaprine 10 mg tablet 10 mg PO HS PRN (Reason: muscle spasm) Qty: 90 4RF Rx Instructions: For muscle spasm levalbuterol tartrate [Xopenex HFA] 45 mcg/actuation HFA aerosol inhaler 2 puff Inhalation Q4H PRN PRN (Reason: shortness of breath or wheezing) Qty: 15 4RF amlodipine 5 mg tablet 5 mg PO QHS Qty: 90 4RF Discharge Instructions Additional Instructions: Your CAT scan showed you have diverticulitis. There is no perforation or abscess Take the antibiotic as prescribed Try to increase fiber in your diet can help prevent this in the future Follow-up with your primary care provider especially if not better within 1 to 2 weeks If you feel more ill, have severe worsening pain or high fevers return to the emergency department for reevaluation. HPI General Mode of arrival: ambulatory. Date/Time Provider Initiated Documentation: 05/01/24 08:03. Limitations to Documentation: no limitations. Information obtained by: patient. History of Present Illness 49 year old M presents to the emergency department with the chief complaint of left loewr abdominal pain, described as moderate, Quality is described as sharp, Patient started experiencing this week(s) (1) and it has been constant. No relieving factors improve symptom(s), No exacerbating factors reported . Patient notes denies chest pain and shortness of breath. Patient did receive the following treatments prior to arrival, none Related Data Home Medications ?Medication ?Instructions ?Recorded ?Confirmed aspirin 81 mg tablet,delayed 81 mg PO DAILY 08/24/13 05/01/24 release cyclobenzaprine 10 mg tablet 10 mg PO HS PRN muscle spasm #90 03/26/24 05/01/24 tab-caps levalbuterol tartrate 45 2 puff inhalation Q4H PRN PRN 03/26/24 05/01/24 mcg/actuation aerosol inhaler shortness of breath or wheezing (Xopenex HFA) #15 grams amlodipine 5 mg tablet 5 mg PO QHS #90 tabs 04/02/24 05/01/24 amoxicillin 875 mg-potassium 1 tab PO BID #14 tabs 05/01/24 clavulanate 125 mg tablet Previous Rx's ?Medication ?Instructions ?Recorded cyclobenzaprine 10 mg tablet 10 mg PO HS PRN muscle spasm #90 03/26/24 tab-caps levalbuterol tartrate 45 2 puff inhalation Q4H PRN PRN 03/26/24 mcg/actuation aerosol inhaler shortness of breath or wheezing (Xopenex HFA) #15 grams amlodipine 5 mg tablet 5 mg PO QHS #90 tabs 04/02/24 amoxicillin 875 mg-potassium 1 tab PO BID #14 tabs 05/01/24 clavulanate 125 mg tablet Allergies Allergy/AdvReac Type Severity Reaction Status Date / Time apple Allergy Intermediate lip Verified 05/01/24 08:07 tingling and swelling santizo pepper (green pepper) Allergy Intermediate tingling Verified 05/01/24 08:07 lips General Stated Complaint: Abd Prob LIZETH: 3 Review of Systems All systems reviewed & are unremarkable except as noted in HPI and below Constitutional Constitutional: Denies chills, Denies fever(s) and Denies weakness Cardiovascular Cardiovascular: Denies chest pain and Denies dyspnea Respiratory Respiratory: Denies cough and Denies dyspnea Gastrointestinal Gastrointestinal: Reports abdominal pain, Reports nausea and Reports vomiting Musculoskeletal Musculoskeletal: Denies joint swelling Neurologic Neurologic: Denies weakness Exam GI Palpation: soft and tender Course Vital Signs Vital signs: Vital Signs Pulse 86 05/01/24 08:02 Respiratory Rate 15 05/01/24 08:02 Blood Pressure 164/85 H 05/01/24 08:02 Pulse Oximetry 99 05/01/24 08:02 Pulse 86 05/01/24 08:04 Respiratory Rate 15 05/01/24 08:04 Respiratory Effort Normal 05/01/24 08:04 Blood Pressure 164/85 H 05/01/24 08:04 Blood Pressure Position Sitting 05/01/24 08:04 Pulse Oximetry 99 05/01/24 08:04 Oxygen Delivery Method Room Air 05/01/24 08:04 Oxygen Flow Rate 0 05/01/24 08:04 Pain Level 4 05/01/24 08:04 Medical Decision Making 49-year-old male with a history of hypertension, hyperlipidemia, no prior abdominal surgeries no prior colonoscopies comes in with 1 week of left lower quadrant pain. He said when this started he had 1 episode of vomiting which resolved and still some mild nausea. No fevers, no difficulty urinating or burning with urination. He arrives stable and appears well in no distress. He does have a soft abdomen with tenderness localized to left lower quadrant. Suspect diverticulitis, will check a CBC CMP lipase and CT abdomen pelvis to further evaluate. Labs show mild leukocytosis otherwise unremarkable, CT shows uncomplicated diverticulitis. Patient is stable, will initiate oral Augmentin and advised to follow-up with his PCP and return precautions given Differential Diagnosis Differential Diagnosis: Diverticulitis, kidney stone Imaging Data Radiologic Study: Attestation: I personally reviewed and interpreted this imaging study as follows: Imaging: CT Scan Radiologist's impression: IMPRESSION:: Diverticulitis of the mid to lower descending colon. No abscess or perforation. Lab Data Lab results reviewed: Yes I reviewed the patient's lab results. Quality:SDOH Health Related Social Needs: No Data to Display PFSH All Active Problems (Updated 05/01/24 @ 10:15 by Danish Palafox MD) Diverticulitis (Chronic) Abdominal pain (Acute) Wheezing (Acute) has occasional chest congestion and uses levalbuterol. Shortness of breath (Acute) has occasional chest congestion and uses levalbuterol. Decreased hearing (Acute) Fatigue (Acute) Prediabetes (Acute) Screening for colon cancer (Acute) Night sweats (Acute) Obesity (BMI 30-39.9) (Chronic) Essential hypertension (Acute 12/07/16) Hyperlipidemia (Acute) Lumbago (Chronic) -2006 Scrotal varices (Acute) Medical History (Updated 05/01/24 @ 10:15 by Danish Palafox MD) Arthritis of carpometacarpal (CMC) joint of left thumb chronic MCL sprain of left knee (07/17/19) Perianal abscess Anisocoria Anxiety Depression Shoulder pain Surgical History Previous back surgery ? In [place] Family History Mother Fibromyalgia Father Diabetes Essential hypertension Hyperlipidemia Stroke Maternal Grandfather , 83 Stroke Alcohol abuse Paternal Grandfather , 74 Myocardial infarction Stroke Maternal Grandmother , 49 Lung cancer Paternal Grandmother No problems noted. Sister Aneurysm Traumatic brain injury Social History Smoking/Tobacco Use Status: Former Tobacco Use tobacco type: cigarettes Tobacco: How many years used: 10 Second Hand Exposure: Yes Smoking risk assessment performed?: Yes Alcohol Intake: current Alcohol Intake frequency: a few times a month Alcohol type: beer Drug use: Daily Substance use type: marijuana Caregiver/Support person: No Housing: house Communication Needs: None Do you need help understanding health information?: Never Pets and animals: Yes Pets and animals: cat(s) and dog(s) Sexually active: Yes Do you think of yourself as: straight/heterosexual Current gender identity: male What is your relationship status?: How often do you talk on the phone with friends or family?: decline to answer How often do you get together with friends or relatives?: decline to answer How often do you attend oriental orthodox or tenriism services?: decline to answer Do you belong to any clubs or organized social groups?: decline to answer Panel score (0-1 are the most socially isolated patients): 1 What type of physical activity do you participate in: decline to answer Duration: decline to answer Frequency: decline to answer Maria Victoria/Hoahaoism: No preference Special maria victoria needs: No Seatbelt use: always Drive intox or ride w/intox powder truck driver: No Do you feel safe at home: Yes Do you feel safe in your relationship?: Yes PAWSS Have you Been Recently Intoxicated or Drunk Within the Last 30 days?: No Have you Ever Experienced Previous Episodes of Alcohol Withdrawal?: No Have you ever Experienced Withdrawal Seizures?: No Have you ever Experienced Delirium Tremens(DT)s?: No Have you ever undergone Alcohol Rehabilitation Treatment (i.e, inpt ot outpatient treatment programs)?: No Have you ever Experienced Blackouts?: No Have you ever Combined Alcohol with other Downers within the last 90 days?: No Have you ever Combined Alcohol with any other Substance of Abuse during the last 90 days?: No Result: 0
[2024-05-01 08:21] VITALS: TEMP 36.7
[2024-05-01] MEDS: Normal Saline 1,000 ML 1000 ML IV (08:25)
[2024-05-01 08:28] LABS: Abs Immature Grans 0.04 10^3/uL (0.0-0.06); Absolute Neutrophil Count 9.35 10^3/uL (1.2-6.7); Basophils % 0.2 %; Eosinophils % 0.2 %; HCT 43.8 % (40.0-50.0); HGB 14.2 g/dL (13.5-17.5); Immature Grans % 0.3 %; MCH 29.7 pg (27.0-33.0); MCHC 32.4 % (32.0-36.0); MCV 92 fL (80-95); MPV 9.9 fL (8.0-11.0); Monocytes % 8.3 %; Platelet Count 274 10^3/uL (130-400); RBC 4.78 10^6/uL (4.36-5.78); RDW 13.2 % (11.8-14.1); RDW-SD 45.3 fL; WBC 12.47 10^3/uL (4.4-10.8)
[2024-05-01 08:29] LABS: Absolute Basophil Count 0.02 10^3/uL (0.0-0.2); Absolute Eosinophil Count 0.02 10^3/uL (0.0-0.7); Absolute Monocyte Count 1.04 10^3/uL (0.1-0.8)
[2024-05-01 09:01] LABS: ALT 28 U/L (16-63); AST 12 U/L (15-37); Albumin 3.8 g/dL (3.4-5.0); Alkaline Phosphatase 51 U/L (46-116); Anion Gap 8.8 mmol/L (3-11); BUN 7 mg/dL (7-18); Bilirubin, Direct 0.2 mg/dL (0.0-0.2); Bilirubin, Total 0.67 mg/dL (0.2-1.0); CO2 29.2 mmol/L (21.0-32.0); CREATININE 0.8 mg/dL (0.70-1.30); Calcium 8.9 mg/dL (8.5-10.1); Chloride 104 mmol/L (98-107); Estimated GFR 107.82 (mL/min/1.73m2); Glucose 112 mg/dL (74-106); Lipase 27 U/L (16-77); Magnesium 1.9 mg/dL (1.8-2.4); Sodium 142 mmol/L (136-145); Total Protein 7.6 g/dL (6.4-8.2)
[2024-05-01] MEDS: Normal Saline - Diluent 50 ML VIAL IJ (09:32)
[2024-05-01] MEDS: Omnipaque 350 MG/ML 100 ML BTL IJ (09:33)
[2024-05-01 09:45] LABS: Bilirubin Negative (Negative); Blood Small (Negative); Clarity Clear (Clear); Glucose Negative (Negative); Ketones 15 mg/dL (Negative); Leukocyte Esterase Negative (Negative); Nitrite Negative (Negative); Specific Gravity 1.015 (1.005-1.025); Urobilinogen 0.2 mg/dL (Up to 0.2); pH 5.5 (5-8)
[2024-05-01 09:55] LABS: Bacteria Rare HPF (Negative); C & S Indicated? No; Casts Negative LPF (Negative); Crystals Negative HPF (Negative); Epithelial Cells Rare HPF (Negative); Mucus Heavy (Negative); WBC 0-2 HPF (0-5)
[2024-05-01] MEDS: Amoxicillin 875/Clav. 125 TAB PO (10:32)
[2024-05-01] MEDS: Normal Saline Flush 10 ML SYR IVP (10:33)
[2024-05-01 10:35] VITALS: BP 136/84; PULSE 86; RESP 15; O2SAT 99
== END 2024-05-01 10:35 | disposition home or self-care (01) ==
LOC: ER 10:53
PROVIDERS: Emergency Provider Emergency Medicine; PCP Nurse Practitioner Family
DX: R10.32 Left lower quadrant pain (principal); K57.32 Diverticulitis of large intestine without perforation or abscess without bleeding; I10 Essential (primary) hypertension; E78.5 Hyperlipidemia, unspecified; Z79.82 Long term (current) use of aspirin; Z87.891 Personal history of nicotine dependence
CPT/HCPCS: 36415; 80053; 83690; 96360; 99285; 74177; 81003; 81015; 82248; 83735; 85025; 99284; J3490

== ENCOUNTER 2024-10-12 08:20 | Day surgery (SDC) | payer BC, SELFPAY ==
--- NOTE | 2024-10-11 14:52 | W.PM.DSUDISC ---
Date of service: 10/12/24 Discharge Plan Disposition Patient Disposition: Home Condition: Good Discharge Details Reason For Visit: screening colonoscopy Attending Provider: Serafin Yoder Primary Care Provider: Mary Anne Cobos Home Meds and New Rx's Prescriptions: Continued aspirin 81 MG tablet,delayed release (DR/EC) 81 mg PO DAILY cyclobenzaprine 10 mg tablet 10 mg PO HS PRN (Reason: muscle spasm) Qty: 90 4RF Rx Instructions: For muscle spasm levalbuterol tartrate [Xopenex HFA] 45 mcg/actuation HFA aerosol inhaler 2 puff Inhalation Q4H PRN PRN (Reason: shortness of breath or wheezing) Qty: 15 4RF Patient Comments: 3 weeks amlodipine 5 mg tablet 5 mg PO QHS Qty: 90 4RF Discontinued polyethylene glycol 3350 17 gram/dose powder 238 g PO ONCE Qty: 238 0RF Rx Instructions: take per colonoscopy instructions bisacodyl [Dulcolax (bisacodyl)] 5 mg tablet,delayed release (DR/EC) 5 mg PO ONCE Qty: 4 0RF Rx Instructions: take per colonoscopy instructions Discharge Instructions Additional Instructions: Remington, it was very nice to see you today. Your colonoscopy went very smoothly. Your prep was excellent and I could see everything fine. Everything was totally normal. You should consider another colonoscopy in 10 years. 1. If tolerated, consume a soft, low fiber diet for 1-2 days. [address] Do not drive, drink alcohol, operate machinery, make critical decisions, or do activities that require coordination or balance for 24 hours. 3. Because air was put into your colon during the procedure, expelling air from your rectum (passing gas or farting) is normal. 4. You may not have a bowel movement for 1-3 days because of the colonoscopy prep. This is normal. 5. Go directly to the emergency room if you notice any of the following: Develop chills (warm to touch), or if you have a thermometer and your temperature is above 101 Difficulty breathing or difficultly swallowing Persistent vomiting Severe abdominal pain, other than gas cramps Severe chest pain Black, tarry stools Any bleeding ? exceeding one tablespoon 6. Call your physician if the site where your intravenous was started becomes red, swollen, painful, and warm to touch. 7. Your physician has reviewed your pre-procedure medications. Please continue to take those medications as previously ordered. You will be given specific information/education regarding any changes to your medications before leaving. Stand Alone Forms: Anesthesia Discharge InstAgustin, Curtis Baltazar (DSU) Activity:: Activity as Tolerated Diet:: As Tolerated Discharge Orders Discharge Orders: Discharge Order (Routine); Ordered 10/11/24 Ordered By: Serafin Yoder DS: Diagnosis Discharge Diagnosis (1) Encounter for screening colonoscopy: Status: Acute Asessment and Plan: Negative screening colonoscopy; follow-up in 10 years
--- NOTE | 2024-10-11 14:53 | COLE_ITS ---
Date of service: 10/12/24 Time of Service: 10:12 Colonoscopy Report Date of procedure: 10/12/24 Pre-op diagnosis general: screening colonoscopy Post-op diagnosis procedure note: other (Negative screening colonoscopy) Procedure: colonoscopy Surgeon: Serafin Yoder Anesthesia Type: General:No Airway Estimated blood loss (mL): 0 Pathology: none sent Complications: None Disposition: same day Indications: Remington is a 49 year old man who needs a screening colonoscopy Prep: Miralax/Dulcolax Procedure Start Time: 09:53 Procedure End Time: 10:02 Retraction Time: 6 Findings: Negative screening colonoscopy Procedure Description: After the induction of anesthesia, and with the patient in left lateral decubitus position, I began by performing an external anorectal exam.? Perineum and skin were normal, as was the anal verge.? There was no evidence of external hemorrhoids.? Next, I performed a digital rectal exam.? I did not appreciate any abnormal findings.? Next, I advanced a colonoscope into the rectal vault.? I performed retroflexion.? This appeared normal.? Using insufflation, I then advanced the colonoscope beyond the rectal folds and into the sigmoid colon before advancing towards the cecum.? The quality of the prep was excellent.? The scope was noted to be in the cecum by identification of the ileocecal valve and appendiceal orifice.? I then began withdrawing the colonoscope using repeated irrigation as necessary for full evaluation of the colonic mucosa. ?Once the scope was withdrawn to the level of the rectum, great care was taken to examine portions of the rectal folds.? Finally, the scope was withdrawn and the patient was brought to the same-day surgery recovery unit as the anesthetic wore off. ?The findings and instructions were shared with the patient prior to discharge. [place] Bowel Prep [place] Bowel Prep Right Colon: 3 Left Colon: 3 Transverse Colon: 3 Total Score: 9
[2024-10-12 08:50] VITALS: BP 127/99; PULSE 81; RESP 20; TEMP 36.7; O2SAT 96
[2024-10-12] MEDS: Lactated Ringers 1,000 ML 80 ML IV (09:10)
--- NOTE | 2024-10-12 09:25 | ANES.PREOP_ITS ---
General Info Date of Service Date Performed: 10/12/24 Height: 6 ft 2 in Weight: 113.4 kg Body Mass Index (BMI): 32.1 Surgical Procedure: Operation Date: 10/12/24 09:35 Proposed Procedure Side Surgeon p Morgan Yoder MD Meds Allergies and Home Medications Allergies Allergy/AdvReac Type Severity Reaction Status Date / Time apple Allergy Intermediate lip Verified 10/12/24 08:45 tingling and swelling santizo pepper (green pepper) Allergy Intermediate tingling Verified 10/12/24 08:45 lips Home Medication ?Medication ?Instructions ?Recorded aspirin 81 mg tablet,delayed 81 mg PO DAILY 08/24/13 release cyclobenzaprine 10 mg tablet 10 mg PO HS PRN muscle spasm #90 03/26/24 tab-caps levalbuterol tartrate 45 2 puff inhalation Q4H PRN PRN 03/26/24 mcg/actuation aerosol inhaler shortness of breath or wheezing (Xopenex HFA) #15 grams amlodipine 5 mg tablet 5 mg PO QHS #90 tabs 04/02/24 Current Visit Medications: Current Medications Generic Name Dose Route Start Last Admin Trade Name Freq PRN Reason Stop Dose Admin Ringer's Solution 1,000 mls @ 80 mls/hr 10/12/24 08:00 10/12/24 09:10 IV 11/11/24 07:59 80 mls/hr INFUSION PAMELA Administration IV Miscellaneous Supplies 1 each 10/12/24 06:00 Iv Access IV 10/12/24 23:59 DIRECTED PAMELA Ondansetron HCl 4 mg 10/11/24 14:54 Ondansetron 4 Mg/2 Ml Vial IVP 11/10/24 14:53 Q4H PRN PRN Nausea / Vomiting Sodium Chloride 0 ml 10/12/24 06:00 Normal Saline Flush 10 Ml Syr IV 10/12/24 23:59 PRN PRN Sodium Chloride 0 ml 10/12/24 06:00 Normal Saline 10 Ml Vial IJ 10/12/24 23:59 DIRECTED PRN Sterile Water 0 ml 10/12/24 06:00 Water,Injection,Sterile 10 Ml Vial IJ 10/12/24 23:59 DIRECTED PRN PFSH Active Problems Active Problems: Problem Status Onset Code Encounter for screening colonoscopy Acute Z12.11 Wheezing Acute R06.2 Decreased hearing Acute H91.90 Fatigue Acute R53.83 Prediabetes Acute R73.03 Screening for colon cancer Acute Z12.11 Night sweats Acute R61 Obesity (BMI 30-39.9) Chronic E66.9 Essential hypertension Acute 12/07/16 I10 Hyperlipidemia Acute E78.5 Lumbago Chronic M54.5 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 woke up your grumpy and O2 sats in 80s Surgical History Surgical History Previous back surgery ? In [place] Tobacco Smoking/Tobacco Use Status: Former Tobacco Use Passive smoking exposure: Yes Second hand exposure: Yes Alcohol Alcohol Intake: current Alcohol intake frequency: a few times a month Alcohol type: beer Details: 3-4 drinks on typical day, 6 or more drinks monthly or less Substance Use Substance use: Daily Substance use type: marijuana Details: alcohol: 09/07/24. Marijuana: t-1, joint Vital Signs and Lab Results Vital Signs Most Recent Vital Signs in EMR: Most Recent Vital Signs Temp Pulse Resp BP Pulse Ox 36.7 C 81 20 127/99 H 96 10/12/24 08:50 10/12/24 08:50 10/12/24 08:50 10/12/24 08:50 10/12/24 08:50 Lab Results Blood Type / Crossmatch: No Data to Display Complete Blood Count: No Data to Display Complete Metabolic Panel: No Data to Display Liver Function Panel: No Data to Display Coagulation Panel: No Data to Display Cardiac Panel: No Data to Display Arterial Blood Gas: No Data to Display Venous Blood Gas: No Data to Display Pancreas Panel: No Data to Display Thyroid Panel: No Data to Display Infectious Disease: No Data to Display Blood Cultures: No Data to Display Toxicology Panel: No Data to Display Anesthesia Assessment and Plan Anesthesia History Personal History: Other Family History: No Family History of Anesthesia Complications Exercise Tolerance Exercise Tolerance: Metabolic Equivalents>4 Pertinent Negatives Pertinent Negatives: No Symptoms of GERD Cardiac & Pulmonary Exam Cardiac Exam: Normal S1/S2 Heart Sounds Pulmonary Exam: Clear Bilateral Breath Sounds Implantable Cardiac Device Does patient have a Pacemaker or an ICD?: No Airway Exam Known Difficult Airway: No Mallampati Class: 1 Mouth Opening: Normal (> 3cm) Thyromental Distance: Greater than 3 cm Neck Range of Motion: Full ROM Neck Circumference: Normal Teeth Condition: Normal Dentition ASA Classification ASA Score: ASA 2 Emergency Case?: No NPO Status NPO Status: NPO Clears >2 hours, Solids >8 hours Anesthesia Plan Resuscitation Status: Full Code Anesthesia Technique: General Anesthesia Airway Planned: Natural Airway Monitors Used: Standard Monitors
[2024-10-12 09:26] VITALS: BMI 32.1
[2024-10-12 10:08] VITALS: BP 124/84; PULSE 83; RESP 18; TEMP 36.5; O2SAT 92
[2024-10-12 10:29] VITALS: BP 127/90; PULSE 72; RESP 20; TEMP 36.3; O2SAT 98
--- NOTE | 2024-10-12 10:34 | W.ANESPOSTOP ---
Postoperative Evaluation Date, Time and Location Date Performed: 10/12/24 Time Performed: 10:24 Patient Location: Day Surgery Unit Vital Signs Most Recent Imported Vital Signs: Most Recent Vital Signs Temp Pulse Resp BP Pulse Ox 36.3 C L 72 20 127/90 98 10/12/24 10:29 10/12/24 10:29 10/12/24 10:29 10/12/24 10:29 10/12/24 10:29 Pain Score Most Recent Pain Score: Most Recent Pain Score Pain Level 0 10/12/24 08:50 Assessment Mental Status: Awake (Alert & Oriented to Patient Baseline) Airway and Respiratory Function: Patent airway with normal (patient baseline) respiratory exam Cardiovascular Function: Hemodynamically Stable Hydration Status: Adequately Hydrated Nausea & Vomiting: No Nausea or Vomiting Pain: Pt. Denies Any Pain Peripheral Nerve Block: Patient did not receive a nerve block
== END 2024-10-12 10:40 | disposition home or self-care (01) ==
LOC: SUR 08:20
PROVIDERS: PCP Nurse Practitioner Family; Visit Provider Surgery
PROC: 0DJD8ZZ Inspection of Lower Intestinal Tract, Via Natural or Artificial Opening Endoscopic (ICD-10-PCS; CPT 45378; principal; 2024-10-12 09:30)
DX: Z12.11 Encounter for screening for malignant neoplasm of colon (principal)
CPT/HCPCS: 45378; J2704